=== PATIENT | female | born 1980 | race Caucasian/White ===

== ENCOUNTER 2020-08-02 12:59 | Emergency (ER) | payer OTHER ==
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
== END 2020-08-02 13:50 | disposition home or self-care (01) ==
LOC: CC.ED 12:59
DX: S20.212A Contusion of left front wall of thorax, initial encounter (principal); S40.012A Contusion of left shoulder, initial encounter; V49.40XA Driver injured in collision with unspecified motor vehicles in traffic accident, initial encounter; Y92.410 Unspecified street and highway as the place of occurrence of the external cause
CPT/HCPCS: 71046; 99284-25